=== PATIENT | female | born 1970 | race Caucasian/White ===

== ENCOUNTER 2020-02-03 08:10 | Emergency (ER) | payer OTHER, MEDICAID, SELFPAY ==
[~2020-02-03] VITALS: Ht 165.1 cm; Wt 83.9 kg
[2020-02-03 08:10] VITALS: BP_SYST 139
--- NOTE | 2020-02-03 08:16 | NUR ---
Patient to ER bed 4 to gown for evaluation. Side rails up. Report given to GRADY Paz.
[2020-02-03] MEDS ORDERED: NACL 0.9% 1,000 ML IV ONE (08:30)
[2020-02-03] MEDS ORDERED: MORPHINE 4 MG/ML INJ. SYRINGE IVP ONE (08:30)
[2020-02-03] MEDS ORDERED: ONDANSETRON HCL 4 MG/2 ML VIAL IVP ONE (08:30)
--- NOTE | 2020-02-03 08:30 | NUR ---
ER DR. MASSEY AT THE BEDSIDE EVALUATING PT
--- NOTE | 2020-02-03 08:35 | NUR ---
PT BIBA FOR N/V FOR 1.5 DAYS ACCOMPANIED BY ABD PAIN. PT HAS A HX OF COLON CA AND NOT HAD RELIEF AT HOME. PRESENTS AAOX4, V/S STABLE
--- NOTE | 2020-02-03 08:40 | NUR ---
# 20 gauge angiocath placed to LAC. Use of asceptic technique. Opsite placed over site. Blood return noted. Blood for lab drawn from site. Flushed with 10 cc of normal saline. No evidence of infiltration noted. Patient tolerated well.
[2020-02-03 08:47] LABS: BASOPHILS % (AUTO) 0.2 % (0.0-2.0); EOSINOPHILS % (AUTO) 0.1 % (0.0-4.0); HEMOGLOBIN 15.2 g/dL (12.0-16.0); LYMPHOCYTES # (AUTO) 0.9 K/uL (1.0-5.5); LYMPHOCYTES % (AUTO) 7.2 % (20.5-51.5); MEAN CORPUSCULAR HEMOGLOBIN 24 pg (27-31); MEAN CORPUSCULAR HGB CONC 32 % (32-36); MEAN CORPUSCULAR VOLUME 73 fL (79.0-98.0); MONOCYTES # (AUTO) 0.3 K/uL (0.0-1.0); MONOCYTES % (AUTO) 2.1 % (1.7-9.3); NEUTROPHILS # (AUTO) 11.7 K/uL (1.8-7.7); NEUTROPHILS % (AUTO) 90.4 % (40.0-70.0); PLATELET COUNT (AUTO) 497 K/uL (130-430); RED BLOOD CELL COUNT(AUTO) 6.45 MIL/uL (4.2-6.2); RED CELL DISTRIBUTION WIDTH 26.4 % (9.0-15.0); WHITE BLOOD COUNT (AUTO) 12.9 K/uL (4.8-10.8)
--- NOTE | 2020-02-03 08:51 | NUR ---
PORTABLE X-RAY AT THE BEDSIDE
[2020-02-03 08:58] LABS: ANION GAP 14 (5-15); CALCIUM 10.2 mg/dL (8.4-11.0); CHLORIDE 96 mmol/L (98-107); CREATININE 0.87 mg/dL (0.55-1.30); GLUCOSE 245 mg/dL (70-99); SODIUM SERUM 136 mmol/L (136-145); UREA NITROGEN, BLOOD 14 mg/dL (8-21)
[2020-02-03 09:07] LABS: GFR AFRICAN AMERICAN 89 mL/min (>90)
[2020-02-03 09:13] LABS: ALANINE AMINOTRANSFERASE 19 U/L (12-78); ALBUMIN 4.4 g/dL (3.4-4.8); ASPARTATE AMINOTRANSFERASE 11 U/L (10-37); LIPASE 202 U/L (73-393); TOTAL BILIRUBIN 0.8 mg/dL (0.0-1.0)
[2020-02-03] MEDS ORDERED: DIPHENHYDRAMINE INJ 50 MG/ML VIAL IVP ONE (11:30)
[2020-02-03] MEDS ORDERED: METOCLOPRAMIDE HCL 10 MG/2 ML VIAL IVP ONE (11:30)
[2020-02-03 11:52] VITALS: BP_SYST 139
--- NOTE | 2020-02-03 11:55 | NUR ---
Patient to be transferred to [facility]. Is being transferred due to higher level of care. Receiving facility has accepting physician and available space. ER physician has signed transfer form. Patient or responsible libertarian has agreed to transfer and signed form. Patient belongings inventoried and will be sent with patient. Copy of nursing notes, lab reports, EKG, Physicians Orders and X-rays to be sent with patient. Report called to GRADY DUMAS at receiving facility. Receiving physician is . [facility] ambulance service has been called for transfer. ETA is [id number].
== END 2020-02-03 11:52 | disposition short-term general hospital (02) ==
LOC: EDSEX 08:10 → SED 08:10
DX: C18.9 Malignant neoplasm of colon, unspecified (principal); K56.609 Unspecified intestinal obstruction, unspecified as to partial versus complete obstruction; R11.2 Nausea with vomiting, unspecified; E11.65 Type 2 diabetes mellitus with hyperglycemia; Z88.0 Allergy status to penicillin; Z88.6 Allergy status to analgesic agent
CPT/HCPCS: 36415; 71045; 74176; 76376; 80053; 81002; 83690; 84484; 85025; 87426; 93005; 96361; 96374; 96375; 99285; J1200; J2270; J2405; J2765; J7030